=== PATIENT | female | born 1990 | race Caucasian/White ===

== ENCOUNTER 2018-08-01 04:01 | Emergency (ER) | payer BC ==
[~2018-08-01] VITALS: Ht 162.6 cm; Wt 94.0 kg
[2018-08-01] MEDS ORDERED: mag hydrox/Alum hydrox/simeth 30ml oral suspension PO ONE (04:15)
[2018-08-01] MEDS ORDERED: famotidine 20mg tablet PO ONE (04:15)
[2018-08-01] MEDS ORDERED: LIDOcaine Viscous 15ml cup MM PRN (04:15)
[2018-08-01] MEDS ORDERED: CYCL-1 PO (05:05)
[2018-08-01] MEDS ORDERED: ketorolac trometh inj. 60 MG/2 ML VIAL IM ONE (05:05)
[2018-08-01] MEDS ORDERED: FAMO-128 PO (05:05)
[2018-08-01 05:18] VITALS: BP 122/55
== END 2018-08-01 05:20 | disposition home or self-care (01) ==
LOC: ER 04:03
DX: K29.70 Gastritis, unspecified, without bleeding (principal); M54.6 Pain in thoracic spine; R42 Dizziness and giddiness; Z79.899 Other long term (current) drug therapy; Z87.19 Personal history of other diseases of the digestive system
CPT/HCPCS: 71045; 93005; 96372; 99283; J1885